=== PATIENT | male | born 1965 | race African-American/Black ===

== ENCOUNTER 2017-08-01 08:07 | Emergency (ER) | payer OTHER ==
[~2017-08-01] VITALS: Ht 185.4 cm; Wt 63.5 kg
[~2017-08-01 08:07] MED LIST: CYCLOBENZAPRINE10 MG ORAL; IBUPROFEN600 MG ORAL; IBUPROFEN800 MG ORAL; KEFLEX500 MG ORAL; NKM
[2017-08-01] MEDS ORDERED: GUAIFENESIN200 MG ORAL (08:54)
[2017-08-01] MEDS ORDERED: ZITHROMAX250 MG ORAL (08:54)
[2017-08-01] MEDS ORDERED: Azithromycin 250mg tab ORAL ONE (09:00)
[2017-08-01 09:18] VITALS: BP 124/80
--- NOTE | 2017-08-01 09:56 | Emergency Room Report ---
History of Present Illness General Chief Complaint: Flu Like Symptoms Source: Patient, Medical Record Present Illness HPI Is a 52-year-old male who presented after increased cough and congestion. The patient reports gradual onset of symptoms. Patient stated that he had intermittently productive cough. The patient states that he is a smoker. He states he smokes approximately 10 cigarettes. Patient denies any hemoptysis. He denies any leg pain or swelling. He denied any fever. He reports having a recent exposure to possible STD. He denies any urinary symptoms or genital discharge or ulceration Allergies: Coded Allergies: No Known Allergies (Unverified , 09/16/13) Patient History Past Medical History: see triage record Reviewed Nursing Documentation: PMH: Agreed, PSxH: Agreed Nursing Documentation-PMH Past Medical History: No History, Except For Hx Cardiac Problems: No Hx Hypertension: Yes Hx Pacemaker: No Hx Asthma: No Hx COPD: No Hx Diabetes: No Hx Cancer: No Hx Gastrointestinal Problems: No Hx Dialysis: No Hx Neurological Problems: No Hx Cerebrovascular Accident: No Hx Seizures: No Review of Systems All Other Systems: negative except mentioned in HPI Physical Exam Vital Signs Date Time Temp Pulse Resp B/P (MAP) Pulse Ox O2 Delivery O2 Flow Rate FiO2 08/01/17 08:14 98.8 88 18 155/90 97 Room Air General Appearance: well appearing, no apparent distress, alert, GCS 15, non- toxic Head: normocephalic, atraumatic ENT: hearing grossly normal, normal voice Neck: full range of motion, supple Respiratory: lungs clear, no respiratory distress, speaking full sentences Cardiovascular #1: normal inspection, regular rate, rhythm Musculoskeletal: no calf tenderness Neurologic: normal gait Psychiatric: mood/affect normal Skin: no rash Medical Decision Making Diagnostic Impression: Primary Impression: Upper respiratory infection Additional Impression: STD exposure ER Course Patient presented for cough. Differential diagnosis included but was not limited to bronchitis, pneumonia, pulmonary embolism, pericarditis, asthma, foreign body. Patient has a benign exam and does not appear to require any further imaging or laboratory testing at this time. Patient was given prescription for antibiotics for STD exposure. The patient is advised to follow up with primary care doctor in 1-2 days. Patient is advised to return if any worsening condition or if any changes in status that are concerning. The patient was advised outpatient STD testing This report is dictated with Dan[employer] wood milling machine operator software which may occasionally lead to discrepancies related to use of this software. Last Vital Signs Date Time Temp Pulse Resp B/P (MAP) Pulse Ox O2 Delivery O2 Flow Rate FiO2 08/01/17 09:18 78 18 124/80 98 Room Air 08/01/17 08:14 98.8 Status: improved Disposition: HOME, SELF-CARE Condition: Stable Scripts Guaifenesin (GUAIFENESIN) 200 Mg Tablet 200 MG ORAL Q4H, #30 TAB 0 Refills Prov: James Jensen 08/01/17 Azithromycin* (ZITHROMAX*) 250 Mg Tablet 250 MG ORAL DAILY, #6 TAB 0 Refills Take two tables once daily for 1 day, then one tablet once daily for 4 days. Prov: James Jensen 08/01/17 Patient Instructions: Upper Respiratory Infection, Adult James Jensen Aug 01, 2017 09:56
== END 2017-08-01 09:23 | disposition home or self-care (01) ==
LOC: EMR 08:50
DX: J06.9 Acute upper respiratory infection, unspecified (principal); Z20.2 Contact with and (suspected) exposure to infections with a predominantly sexual mode of transmission; I10 Essential (primary) hypertension
CPT/HCPCS: 99283; Q0144